=== PATIENT | female | born 2005 | race African-American/Black ===

== ENCOUNTER 2025-02-22 23:07 | Emergency (ER) | payer OTHER ==
[~2025-02-22] VITALS: Ht 172.7 cm; Wt 77.6 kg
[2025-02-22 23:11] VITALS: TEMP 97.5
[2025-02-23] MEDS: ONDANSETRON 4MG 2ML VIAL IV ONE (02:20)
[2025-02-23] MEDS: NS (Normal Saline) 0.9% 1,000 ML IV ONE (02:20)
[2025-02-23 02:22] LABS: BASO # 0.0 10^3/uL (0.0-0.2); BASO % 0.4 % (0.0-1.0); EOS # 0.1 10^3/uL (0.0-0.5); EOS % 1.5 % (0.0-3.0); LYMPH # 3.0 10^3/uL (1.5-5.0); LYMPH % 42.1 % (24.0-44.0); MONO # 0.6 10^3/uL (0.0-0.8); MONO % 9.0 % (2.0-8.0); NEUTROPHILS # 3.3 10^3/uL (1.5-8.5); NEUTROPHILS % 46.7 % (36.0-66.0); PLATELET COUNT, AUTOMATED 239 10^3/uL (150-450)
[2025-02-23 02:51] LABS: ALT/SGPT 14 U/L (7.0-40); AST/SGOT 21 U/L (<34); CALCIUM LEVEL 9.2 MG/DL (8.5-10.1); CARBON DIOXIDE LEVEL 21 MMOL/L (20-31); CHLORIDE LEVEL 105 MMOL/L (98-107); CREATININE FOR GFR 0.45 MG/DL (0.55-1.30); GLOMERULAR FILTRATION RATE > 90.0 (>60); MAGNESIUM LEVEL 1.7 MG/DL (1.8-2.4); POTASSIUM SERUM 3.9 MMOL/L (3.5-5.1); SODIUM LEVEL 138 MMOL/L (136-145)
[2025-02-23 03:09] LABS: HCG, SERUM QUALITATIVE POSITIVE (NEGATIVE)
[2025-02-23 03:56] LABS: KETONE, URINE AUTO RFX NEGATIVE (NEGATIVE); NITRITE, URINE AUTO RFX NEGATIVE (NEGATIVE); RBC, URINE AUTO RFX 1 /HPF (0-3); SQUAM EPITHELIAL CELL UR AURFX 15 /HPF (0-6); WBC, URINE AUTO RFX 3 /HPF (0-3)
[2025-02-23 04:00] LABS: LEUKOCYTE ESTERASE UR AUTO RFX TRACE (NEGATIVE)
[2025-02-23 05:16] VITALS: BP 106/53; O2SAT 100
[2025-02-23 06:30] LABS: HCG, SERUM QUANTITATIVE 80806.0 MIU/ML (<4.2)
== END 2025-02-23 05:18 | disposition home or self-care (01) ==
LOC: M ED 23:07
DX: O26.851 Spotting complicating pregnancy, first trimester (principal); Z3A.11 11 weeks gestation of pregnancy
CPT/HCPCS: 76811; 80053; 81001; 83690; 83735; 84702; 84703; 85025; 86850; 86900; 86901; 87086; 93976; 96361; 96374; 99285; J2405

== ENCOUNTER 2025-04-10 08:42 | Emergency (ER) | payer OTHER ==
[~2025-04-10] VITALS: Ht 172.7 cm; Wt 76.7 kg
[2025-04-10 10:38] LABS: BASO # 0.0 10^3/uL (0.0-0.2); BASO % 0.4 % (0.0-1.0); EOS # 0.0 10^3/uL (0.0-0.5); EOS % 0.1 % (0.0-3.0); LYMPH # 1.1 10^3/uL (1.5-5.0); LYMPH % 14.3 % (24.0-44.0); MONO # 0.3 10^3/uL (0.0-0.8); MONO % 4.1 % (2.0-8.0); NEUTROPHILS # 6.1 10^3/uL (1.5-8.5); NEUTROPHILS % 80.7 % (36.0-66.0); PLATELET COUNT, AUTOMATED 241 10^3/uL (150-450)
[2025-04-10] MEDS: ACETAMINOPHEN *IV* 1,000 MG in IV 1 EA IV ONE (11:15)
[2025-04-10] MEDS: NS (Normal Saline) 0.9% 1,000 ML IV ONE (11:15)
[2025-04-10 11:16] LABS: ALT/SGPT 16 U/L (7.0-40); AST/SGOT 36 U/L (<34); CALCIUM LEVEL 8.8 MG/DL (8.5-10.1); CARBON DIOXIDE LEVEL 22 MMOL/L (20-31); CHLORIDE LEVEL 105 MMOL/L (98-107); CREATININE FOR GFR 0.50 MG/DL (0.55-1.30); GLOMERULAR FILTRATION RATE > 90.0 (>60); POTASSIUM SERUM 4.3 MMOL/L (3.5-5.1); SODIUM LEVEL 137 MMOL/L (136-145)
[2025-04-10 11:45] LABS: KETONE, URINE AUTO RFX TRACE mg/dL (NEGATIVE); MUCUS, URINE RFX SMALL (NEGATIVE); NITRITE, URINE AUTO RFX NEGATIVE (NEGATIVE); RBC, URINE AUTO RFX 2 /HPF (0-3); SQUAM EPITHELIAL CELL UR AURFX 7 /HPF (0-6); WBC, URINE AUTO RFX 8 /HPF (0-3)
[2025-04-10 11:52] LABS: LEUKOCYTE ESTERASE UR AUTO RFX 3+ (NEGATIVE)
[2025-04-10] MEDS ORDERED: NITR100C3 PO (13:11)
[2025-04-10 13:12] VITALS: BP 110/66; TEMP 97; O2SAT 100
== END 2025-04-10 13:40 | disposition home or self-care (01) ==
LOC: M ED 08:42
DX: O26.892 Other specified pregnancy related conditions, second trimester (principal); O23.42 Unspecified infection of urinary tract in pregnancy, second trimester; R10.9 Unspecified abdominal pain; Z3A.17 17 weeks gestation of pregnancy; Z79.899 Other long term (current) drug therapy
CPT/HCPCS: 76811; 80048; 80076; 81001; 83605; 83690; 85025; 86850; 87086; 96365; 96366; 99284; J0131